=== PATIENT | male | born 1975 | race Caucasian/White ===

== ENCOUNTER 2023-08-17 07:24 | Inpatient (IN) | payer OTHER ==
[2023-08-17] MEDS ORDERED: LORazepam 2 MG/ML INJ IV PRN ×2 (07:37)
[2023-08-17] MEDS: SODIUM CHLORIDE 0.9% 1,000 ML IV STA (07:53)
[2023-08-17 07:54] VITALS: TEMP 98
--- NOTE | 2023-08-17 08:09 | ED ---
Altered Mental Status HPI - General Chief Complaint: Altered Mental Status Stated Complaint: Alcohol Withdrawls Time Seen by Provider: 08/17/23 07:25 Source: patient, EMS, RN notes reviewed Mode of arrival: EMS Limitations: altered mental status - History of Present Illness Initial Comments: 48-year-old male presents emergency department via EMS from [facility] for evaluation of altered mental status. Patient has been there for 4 days for alcohol abuse, has been receiving Ativan for his withdrawal symptoms. Patient is unable to provide any significant information he states he is very confused he does not know any answers he report reportedly has been walking into chen, has been urinating in random places, very confused. Patient has no obvious injuries. - Related Data Home Medications Medication Instructions Recorded Confirmed Calcium/Magnesium/Zinc/Vitamin D 1 tab PO TID PRN 08/17/23 08/17/23 Melatonin 5 mg PO HS 08/17/23 08/17/23 Multivitamins, Thera [Multivitamin 1 tab PO DAILY 08/17/23 08/17/23 (formulary)] Previous Rx's Medication Instructions Recorded Thiamine [Vitamin B-1] 100 mg PO DAILY #90 tab 08/17/23 Allergies Allergy/AdvReac Type Severity Reaction Status Date / Time No Known Allergies Allergy Verified 08/17/23 08:46 Review of Systems ROS Statement: Those systems with pertinent positive or pertinent negative responses have been documented in the HPI. ROS Other: All systems not noted in ROS Statement are negative. Past Medical History Past Medical History: No Reported History History of Any Multi-Drug Resistant Organisms: None Reported Past Surgical History: No Surgical Hx Reported Past Psychological History: No Psychological Hx Reported Smoking Status: Current every day smoker Past Alcohol Use History: Abuse Past Drug Use History: None Reported General Exam Limitations: altered mental status General appearance: alert, in no apparent distress Head exam: Present: atraumatic, normocephalic, normal inspection Eye exam: Present: normal appearance, PERRL, EOMI. Absent: scleral icterus, conjunctival injection, periorbital swelling Neck exam: Present: normal inspection, full ROM. Absent: tenderness, meningismus, lymphadenopathy Respiratory exam: Present: normal lung sounds bilaterally. Absent: respiratory distress, wheezes, rales, rhonchi, stridor Cardiovascular Exam: Present: regular rate, normal rhythm, normal heart sounds. Absent: systolic murmur, diastolic murmur, rubs, gallop, clicks GI/Abdominal exam: Present: soft, normal bowel sounds. Absent: distended, tenderness, guarding, rebound, rigid Neurological exam: Present: alert. Absent: oriented X3 Skin exam: Present: warm, dry, intact, normal color. Absent: rash Course Vital Signs 08/17/23 08/17/23 08/17/23 07:33 07:50 09:36 Temperature 98 F Pulse Rate 70 79 78 Respiratory 20 20 16 Rate Blood Pressure 141/92 141/92 130/68 O2 Sat by Pulse 96 96 98 Oximetry Medical Decision Making - Medical Decision Making Was pt. sent in by a medical professional or institution (, PA, CARDIAC NURSE PRACTITIONER, urgent care, hospital, or prison...) When possible be specific @ -[facility] Did you speak to anyone other than the patient for history (EMS, parent, family, police, friend...)? What history was obtained from this source @ -No Did you review nursing and triage notes (agree or disagree)? Why? @ -I reviewed and agree with nursing and triage notes Were old charts reviewed (outside hosp., previous admission, EMS record, old EKG, old radiological studies, urgent care reports/EKG's, prison records)? Report findings @ -No old charts were reviewed Differential Diagnosis (chest pain, altered mental status, abdominal pain women, abdominal pain men, vaginal bleeding, weakness, fever, dyspnea, syncope, headache, dizziness, GI bleed, back pain, seizure, CVA, palpatations, mental health, musculoskeletal)? @ -Delerium, alcohol withdrawal, hallucinations, drug abuse, alcohol abuse EKG interpreted by me (3pts min.). @ -[None X-rays interpreted by me (1pt min.). @ -Chest x-ray shows no acute process CT interpreted by me (1pt min.). @ -CT brain, showing no acute intracranial hemorrhage, mass effect or acuteabnormality U/S interpreted by me (1pt. min.). @ -None done What testing was considered but not performed or refused? (CT, X-rays, U/S, labs)? Why? @ -None What meds were considered but not given or refused? Why? @ -None Did you discuss the management of the patient with other professionals (professionals i.e. , PA, CARDIAC NURSE PRACTITIONER, lab, RT, psych nurse, social media marketing specialist, instrument assembler, teacher, fire information officer, sample case porter)? Give summary @ -[Dr. Hurtado for admission secondary to delirium, alcohol withdrawal Was smoking cessation discussed for >3mins.? @ -No Was critical care preformed (if so, how long)? @ -No Were there social determinants of health that impacted care today? How? (Homelessness, low income, unemployed, alcoholism, drug addiction, transportation, low edu. Level, literacy, decrease access to med. care, group home, rehab)? @ -No Was there de-escalation of care discussed even if they declined (Discuss DNR or withdrawal of care, Hospice)? DNR status @ -No What co-morbidities impacted this encounter? (DM, HTN, Smoking, COPD, CAD, Cancer, CVA, ARF, Chemo, Hep., AIDS, mental health diagnosis, sleep apnea, morbid obesity)? @ -alcohol abuse abuse Was patient admitted / discharged? Hospital course, mention meds given and route, prescriptions, significant lab abnormalities, going to OR and other pertinent info. @ -Admitted patient presented from [facility] for alcohol withdrawal, delirium. Patient was unable to answer questions upon arrival. Patient is having very bizarre emerald behavior. This is concerning for delirium from his alcohol withdrawal. Patient unable to provide current date and place upon arrival. Patient will be admitted for further evaluation. Undiagnosed new problem with uncertain prognosis? @ -No Drug Therapy requiring intensive monitoring for toxicity (Heparin, Nitro, Insulin, Cardizem)? @ -No Were any procedures done? @ -No Diagnosis/symptom? @ -[Delirium, alcohol withdrawal Acute, or Chronic, or Acute on Chronic? @ -Acute Uncomplicated (without systemic symptoms) or Complicated (systemic symptoms)? @ -Complicated Side effects of treatment? @ -[No Exacerbation, Progression, or Severe Exacerbation? @ -No Poses a threat to life or bodily function? How? (Chest pain, USA, ID, pneumonia, PE, COPD, DKA, ARF, appy, cholecystitis, CVA, Diverticulitis, Homicidal, Suicidal, threat to staff... and all critical care pts) @ -Yes alcohol withdrawal - Lab Data Result diagrams: 08/17/23 07:51 08/17/23 07:51 Lab Results 08/17/23 08/17/23 08/17/23 Range/Units 07:51 07:51 09:41 WBC 9.0 (3.8-10.6) k/uL RBC 4.34 (4.30-5.90) m/uL Hgb 14.0 (13.0-17.5) gm/dL Hct 41.4 (39.0-53.0) % MCV 95.3 (80.0-100.0) fL MCH 32.3 (25.0-35.0) pg MCHC 33.9 (31.0-37.0) g/dL RDW 13.4 (11.5-15.5) % Plt Count 186 (150-450) k/uL MPV 8.1 Neutrophils % 70 % Lymphocytes % 19 % Monocytes % 7 % Eosinophils % 3 % Basophils % 0 % Neutrophils # 6.3 (1.3-7.7) k/uL Lymphocytes # 1.7 (1.0-4.8) k/uL Monocytes # 0.6 (0-1.0) k/uL Eosinophils # 0.3 (0-0.7) k/uL Basophils # 0.0 (0-0.2) k/uL Sodium 138 (137-145) mmol/L Potassium 5.4 H (3.5-5.1) mmol/L Chloride 105 (98-107) mmol/L Carbon Dioxide 23 (22-30) mmol/L Anion Gap 10 mmol/L BUN 13 (9-20) mg/dL Creatinine 0.72 (0.66-1.25) mg/dL Est GFR (CKD-EPI)AfAm >90 (>60 ml/min/1.73 sqM) Est GFR (CKD-EPI)NonAf >90 (>60 ml/min/1.73 sqM) Glucose 93 (74-99) mg/dL Calcium 9.9 (8.4-10.2) mg/dL Magnesium 2.2 (1.6-2.3) mg/dL Total Bilirubin 0.9 (0.2-1.3) mg/dL AST 38 (17-59) U/L ALT 22 (4-49) U/L Alkaline Phosphatase 60 (38-126) U/L Total Protein 8.0 (6.3-8.2) g/dL Albumin 4.4 (3.5-5.0) g/dL Lipase 162 (23-300) U/L Urine Color Colorless Urine Appearance Clear (Clear) Urine pH 6.0 (5.0-8.0) Ur Specific [place] 1.006 (1.001-1.035) Urine Protein Negative (Negative) Urine Glucose (UA) Negative (Negative) Urine Ketones Negative (Negative) Urine Blood Small H (Negative) Urine Nitrite Negative (Negative) Urine Bilirubin Negative (Negative) Urine Urobilinogen <2.0 (<2.0) mg/dL Ur Leukocyte Esterase Negative (Negative) Urine RBC 5 (0-5) /hpf Urine WBC 1 (0-5) /hpf Urine Opiates Screen (NotDetected) Ur Oxycodone Screen (NotDetected) Urine Methadone Screen (NotDetected) Ur Barbiturates Screen (NotDetected) U Tricyclic Antidepress (NotDetected) Ur Phencyclidine Scrn (NotDetected) Ur Amphetamines Screen (NotDetected) U Methamphetamines Scrn (NotDetected) U Benzodiazepines Scrn (NotDetected) Urine Cocaine Screen (NotDetected) U Marijuana (THC) Screen (NotDetected) Serum Alcohol <10 mg/dL 08/17/23 Range/Units 09:41 WBC (3.8-10.6) k/uL RBC (4.30-5.90) m/uL Hgb (13.0-17.5) gm/dL Hct (39.0-53.0) % MCV (80.0-100.0) fL MCH (25.0-35.0) pg MCHC (31.0-37.0) g/dL RDW (11.5-15.5) % Plt Count (150-450) k/uL MPV Neutrophils % % Lymphocytes % % Monocytes % % Eosinophils % % Basophils % % Neutrophils # (1.3-7.7) k/uL Lymphocytes # (1.0-4.8) k/uL Monocytes # (0-1.0) k/uL Eosinophils # (0-0.7) k/uL Basophils # (0-0.2) k/uL Sodium (137-145) mmol/L Potassium (3.5-5.1) mmol/L Chloride (98-107) mmol/L Carbon Dioxide (22-30) mmol/L Anion Gap mmol/L BUN (9-20) mg/dL Creatinine (0.66-1.25) mg/dL Est GFR (CKD-EPI)AfAm (>60 ml/min/1.73 sqM) Est GFR (CKD-EPI)NonAf (>60 ml/min/1.73 sqM) Glucose (74-99) mg/dL Calcium (8.4-10.2) mg/dL Magnesium (1.6-2.3) mg/dL Total Bilirubin (0.2-1.3) mg/dL AST (17-59) U/L ALT (4-49) U/L Alkaline Phosphatase (38-126) U/L Total Protein (6.3-8.2) g/dL Albumin (3.5-5.0) g/dL Lipase (23-300) U/L Urine Color Urine Appearance (Clear) Urine pH (5.0-8.0) Ur Specific [place] (1.001-1.035) Urine Protein (Negative) Urine Glucose (UA) (Negative) Urine Ketones (Negative) Urine Blood (Negative) Urine Nitrite (Negative) Urine Bilirubin (Negative) Urine Urobilinogen (<2.0) mg/dL Ur Leukocyte Esterase (Negative) Urine RBC (0-5) /hpf Urine WBC (0-5) /hpf Urine Opiates Screen Not Detected (NotDetected) Ur Oxycodone Screen Not Detected (NotDetected) Urine Methadone Screen Not Detected (NotDetected) Ur Barbiturates Screen Not Detected (NotDetected) U Tricyclic Antidepress Not Detected (NotDetected) Ur Phencyclidine Scrn Not Detected (NotDetected) Ur Amphetamines Screen Not Detected (NotDetected) U Methamphetamines Scrn Not Detected (NotDetected) U Benzodiazepines Scrn Detected H (NotDetected) Urine Cocaine Screen Not Detected (NotDetected) U Marijuana (THC) Screen Not Detected (NotDetected) Serum Alcohol mg/dL Disposition Clinical Impression: Altered mental status, Alcohol withdrawal delirium Disposition: ADMITTED IP TO THIS [facility] Condition: Stable Time of Disposition: 10:08
--- NOTE | 2023-08-17 08:21 | XR ---
EXAMINATION TYPE: XR chest 2V DATE OF EXAM: 08/17/2023 COMPARISON: None TECHNIQUE: PA and lateral views submitted. HISTORY: Shortness of breath FINDINGS: A limited inspiration. Underlying emphysematous changes. The lungs are clear and there is no pneumot horax, pleural effusion, or focal pneumonia. Heart size normal and no overt failure. Osseous structu res demonstrate hypertrophic and degenerative changes of the spine. IMPRESSION: 1. No acute process. 2. COPD.
--- NOTE | 2023-08-17 08:24 | CT ---
EXAMINATION TYPE: CT brain wo con CT DLP: 1095.4 mGycm, Automated exposure control for dose reduction was used. DATE OF EXAM: 08/17/2023 8:12 AM COMPARISON: None. CLINICAL INDICATION:Male, 48 years old with history of AMS, Altered mental status TECHNIQUE: Brain: Axial CT images of the brain were obtained with coronal and sagittal reformats created and rev iewed. Contrast used: None. Oral contrast used: None. FINDINGS: Brain: Extra-axial spaces: No abnormal extra-axial fluid collections. Ventricular system: Within normal limits Cerebral parenchyma: No acute intraparenchymal hemorrhage or mass effect. The timmons-white junction is well differentiated. Cerebellum: Unremarkable. Mass effect: No evidence of midline shift. Intracranial vasculature: unremarkable Soft tissues: Normal. Calvarium/osseous structures: No depressed skull fracture. Paranasal sinuses and mastoid air cells: Mild scattered paranasal sinus disease. Visualized orbits: Orbital contents are intact. IMPRESSION: No acute intracranial process.
[2023-08-17 09:03] LABS: Basophils % (A) 0 %; Eosinophils # (A) 0.3 k/uL (0-0.7); Eosinophils % (A) 3 %; HCT 41.4 % (39.0-53.0); Lymphocytes # (A) 1.7 k/uL (1.0-4.8); Lymphocytes % (A) 19 %; MCH 32.3 pg (25.0-35.0); MCHC 33.9 g/dL (31.0-37.0); MCV 95.3 fL (80.0-100.0); Mean Platelet Volume 8.1; Monocytes # (A) 0.6 k/uL (0-1.0); Monocytes % (A) 7 %; Neutrophils # (A) 6.3 k/uL (1.3-7.7); Neutrophils % (A) 70 %; Platelet Count 186 k/uL (150-450); RBC 4.34 m/uL (4.30-5.90); RDW 13.4 % (11.5-15.5)
[2023-08-17 09:21] LABS: ALT 22 U/L (4-49); AST 38 U/L (17-59); African American GFR (CKD) >90 (>60 ml/min/1.73 sqM); Albumin 4.4 g/dL (3.5-5.0); Alcohol <10 mg/dL; Alkaline Phosphatase 60 U/L (38-126); Anion Gap 10 mmol/L; Blood Urea Nitrogen 13 mg/dL (9-20); Calcium 9.9 mg/dL (8.4-10.2); Carbon Dioxide 23 mmol/L (22-30); Chloride 105 mmol/L (98-107); Glucose 93 mg/dL (74-99); Lipase 162 U/L (23-300); Magnesium 2.2 mg/dL (1.6-2.3); Non-African American GFR(CKD) >90 (>60 ml/min/1.73 sqM); Potassium 5.4 mmol/L (3.5-5.1); Sodium 138 mmol/L (137-145); Total Bilirubin 0.9 mg/dL (0.2-1.3)
[2023-08-17 09:54] VITALS: BP 130/68; PULSE 78; RESP 16
[2023-08-17] MEDS: LORazepam 2 MG/ML INJ IV PRN (10:02)
[2023-08-17] MEDS ORDERED: ONDANSETRON 4 MG/2 ML VIAL IVP PRN (10:08)
[2023-08-17] MEDS ORDERED: NALOXONE 0.4 MG/ML 1 ML VIAL IV PRN (10:08)
[2023-08-17 10:20] LABS: Appearance,Urine Clear (Clear); Bilirubin,Urine Negative (Negative); Blood,Urine Small (Negative); Color,Urine Colorless; Glucose,Urine (UA) Negative (Negative); Ketones,Urine Negative (Negative); Leukocyte Esterase,Urine Negative (Negative); Nitrite,Urine Negative (Negative); Protein,Urine Negative (Negative); RBC,Urine 5 /hpf (0-5); Specific Gravity,Urine 1.006 (1.001-1.035); Urobilinogen,Urine <2.0 mg/dL (<2.0); WBC,Urine 1 /hpf (0-5)
[2023-08-17 10:27] LABS: Amphetamine Screen,Urine Not Detected (NotDetected); Barbiturate Screen,Urine Not Detected (NotDetected); Benzodiazepines Screen,Urine Detected (NotDetected); Cocaine Screen,Urine Not Detected (NotDetected); Methadone Screen, Urine Not Detected (NotDetected); Opiate Screen,Urine Not Detected (NotDetected); Oxycodone Screen, Urine Not Detected (NotDetected); Phencyclidine Screen,Urine Not Detected (NotDetected); Tricyclic Antidepressant,Urine Not Detected (NotDetected); Urn Cannabinoid Scrn Not Detected (NotDetected)
[2023-08-17] MEDS: NICOTINE 21MG/24HR PATCH TRANSDERM STA (11:01)
[2023-08-17] MEDS: SODIUM CHLORIDE 0.9% 1,000 ML IV SCH (11:04)
--- NOTE | 2023-08-17 14:18 | P.HPIM ---
History of Present Illness H&P Date: 08/17/23 Patient is a 48-year-old male with history of alcohol dependence and nicotine dependence presenting from [facility] for concerns of encephalopathy and delirium. Patient was reportedly admitted to [facility] few days ago after alcohol intoxication. He has been at the facility getting oral Ativan for alcohol withdrawal. However due to concerns of delirium as well as abnormal behavior such as urinating on the chen and bumping into chen, he was sent to ER. Currently denies any chest pain, shortness of breath, abdominal pain, nausea, vomiting, urinary or bowel complaints. In the ED, temperature was 98.0, pulse 70, respiratory rate 20, blood pressure 141/92, saturating at 96% on room air. Laboratory workup showed unremarkable CBC, BMP showed potassium of 5.4, creatinine 0.72, urinalysis negative, toxicology positive for benzodiazepines, serum alcohol level negative. CT head did not show any acute process. Chest x-ray did not show any acute process. Patient admitted for acute encephalopathy likely secondary to alcohol withdrawal. Pertinent positives and negatives as discussed in HPI, a complete review of systems was performed and all other systems are negative. Patient seen and examined at bedside. Vital signs reviewed General: nontoxic, no distress, appears at stated age Derm: warm, dry Head: atraumatic, normocephalic, symmetric Eyes: EOMI, no lid lag, anicteric sclera, pupils equal round reactive to light ENT: Nose and ears atraumatic Neck: No thyromegaly, supple Mouth: no lip lesion, mucus membranes moist Cardiovascular: S1S2 reg, no murmur, no edema Lungs: clear to auscultation bilateral, no rhonchi, no rales, no wheeze, no accessory muscle use Abdominal: soft, nontender to palpation, no guarding, no appreciable organomegaly Ext: no gross muscle atrophy, muscle strength muscle strength 5 out of 5 in all 4 extremities, no contractures Neuro: CN II-XII grossly intact Psych: Alert, oriented, appropriate affect Assessment/Plan: Acute metabolic encephalopathy, resolved Alcohol dependence Nicotine dependence -Patient was started on normal saline at 75 cc an hour -started on oral thiamine -Ativan IV as needed per CIWA score -nicotine patch 21 mg daily -Patient does not have any signs of withdrawal at the moment. May have chronic behavioral issues which he needs outpatient follow-up with. He is alert and oriented x 3. Denies any suicidal or homicidal ideations. Patient going back to [facility] The patient is admitted with an anticipated last than 2 midnight stay as observation status for evaluation of encephalopathy. Surrogate decision-maker: Significant other CODE STATUS: Full code DVT prophylaxis: Not indicated Anticipated discharge date: Today Anticipated discharge place: [facility] A total of 55 minutes was spent on the care of this complex patient more than 50% of the time was spent in counseling and care coordination. Past Medical History Past Medical History: No Reported History History of Any Multi-Drug Resistant Organisms: None Reported Past Surgical History: No Surgical Hx Reported Past Psychological History: No Psychological Hx Reported Smoking Status: Current every day smoker Past Alcohol Use History: Abuse Past Drug Use History: None Reported Medications and Allergies Home Medications Medication Instructions Recorded Confirmed Type Calcium/Magnesium/Zinc/Vitamin D 1 tab PO TID PRN 08/17/23 08/17/23 History Melatonin 5 mg PO HS 08/17/23 08/17/23 History Multivitamins, Thera [Multivitamin 1 tab PO DAILY 08/17/23 08/17/23 History (formulary)] Thiamine [Vitamin B-1] 100 mg PO DAILY #90 tab 08/17/23 Rx Allergies Allergy/AdvReac Type Severity Reaction Status Date / Time No Known Allergies Allergy Verified 08/17/23 08:46 Physical Exam Vitals: Vital Signs Temp Pulse Resp BP Pulse Ox 08/17/23 09:36 78 16 130/68 98 08/17/23 07:50 79 20 141/92 96 08/17/23 07:33 98 F 70 20 141/92 96 Intake and Output 08/16/23 08/17/23 08/17/23 22:59 06:59 14:59 Other: Weight 80.286 kg Results CBC & Chem 7: 08/17/23 07:51 08/17/23 07:51 Labs: Abnormal Lab Results - Last 24 Hours (Table) 08/17/23 08/17/23 08/17/23 Range/Units 07:51 09:41 09:41 Potassium 5.4 H (3.5-5.1) mmol/L Urine Blood Small H (Negative) U Benzodiazepines Scrn Detected H (NotDetected)
--- NOTE | 2023-08-17 14:20 | P.DS ---
Providers Date of admission: 08/17/23 10:24 Expected date of discharge: 08/17/23 Attending physician: Juan Hurtado MD Primary care physician: Rupert Woody Hospital Course: Discharge Diagnosis: Acute metabolic encephalopathy Alcohol dependence Nicotine dependence Hospital Course: Patient is a 48-year-old male with history of alcohol dependence and nicotine dependence presenting from [facility] for concerns of encephalopathy and de lirium. Patient was reportedly admitted to [facility] few days ago after alcohol intoxication. He has been at the facility getting oral Ativan for alcohol withdrawal. However due to concerns of delirium as well as abnormal behavior such as urinating on the chen and bumping into chen, he was sent to ER. Currently denies any chest pain, shortness of breath, abdominal pain, nausea, vomiting, urinary or bowel complaints. In the ED, temperature was 98.0, pulse 70, respiratory rate 20, blood pressure 141/92, saturating at 96% on room air. Laboratory workup showed unremarkable CBC, BMP showed potassium of 5.4, creatinine 0.72, urinalysis negative, toxicology positive for benzodiazepines, serum alcohol level negative. CT head did not show any acute process. Chest x-ray did not show any acute process. Patient admitted for acute encephalopathy likely secondary to alcohol withdrawal. Patient does not have any signs of withdrawal at the moment. May have chronic behavioral issues which he needs outpatient follow-up with. He is alert and oriented x 3. Denies any suicidal or homicidal ideations. Patient going back to [facility] Patient seen and examined at bedside. Vital signs reviewed and stable. General: Nontoxic, no distress, appears at stated age Derm: Warm, dry Head: Atraumatic, normocephalic, symmetric Eyes: EOMI, no lid lag, anicteric sclera Mouth: No lip lesion, mucus membranes moist Cardiovascular: S1S2 reg, no murmur Lungs: CTA bilateral, no rhonchi, no rales, no accessory muscle use Abdominal: Soft, nontender to palpation, no guarding, no appreciable organomegaly Ext: No gross muscle atrophy, no edema, no contractures Neuro: CN II-XI grossly intact, no focal neuro deficits Psych: Alert, oriented, appropriate affect A total of 33 minutes of time were spent preparing this complex discharge summary. Patient was discharged on 08/17/2023 at 1209. Patient Condition at Discharge: Stable Plan - Discharge Summary New Discharge Prescriptions: New Thiamine [Vitamin B-1] 100 mg PO DAILY #90 tab Continue Multivitamins, Thera [Multivitamin (formulary)] 1 tab PO DAILY Melatonin 5 mg PO HS Calcium/Magnesium/Zinc/Vitamin D 1 tab PO TID PRN PRN Reason: Cramping Discontinued ondansetron HCL [Zofran] 8 mg PO Q6H PRN PRN Reason: Nausea And Vomiting Thiamine [Vitamin B-1] 100 mg PO DAILY Mag Hydrox/Aluminum Hyd/Simeth [Mylanta Maximum Strength Liq] 30 ml PO Q4H PRN PRN Reason: Gi Upset Loperamide HCl [Imodium A-D] 4 mg PO BID PRN PRN Reason: Diarrhea Hyoscyamine Sulfate [Levsin] 0.125 mg PO QID PRN PRN Reason: Gi Upset cloNIDine HCL [Catapres] 0.1 - 0.3 mg PO Q4H PRN PRN Reason: BP >160/100 Acetaminophen Tab [Tylenol] 650 mg PO Q4H Ibuprofen [Motrin Ib] 600 mg PO Q6H PRN PRN Reason: Fever And/ Or Pain Chlorpheniramine Maleate [Chlor-Trimeton] 4 mg PO Q4H PRN PRN Reason: Allergy Symptoms LORazepam [Ativan] 1 - 2 mg PO Q4-6H Discharge Medication List Calcium/Magnesium/Zinc/Vitamin D 1 tab PO TID PRN 08/17/23 [History] Melatonin 5 mg PO HS 08/17/23 [History] Multivitamins, Thera [Multivitamin (formulary)] 1 tab PO DAILY 08/17/23 [History] Thiamine [Vitamin B-1] 100 mg PO DAILY #90 tab 08/17/23 [Rx] Follow up Appointment(s)/Referral(s): Rupert Woody [Primary Care Provider] - 1-2 days Patient Instructions/Handouts: Alcohol Dependence (DC) Discharge Disposition: HOME SELF-CARE
[2023-08-18] MEDS ORDERED: THIAMINE 100 MG TAB PO SCH (09:00)
== END 2023-08-17 12:57 | disposition home or self-care (01) | DRG 775 ==
LOC: EC 07:24 → 5NMEDONC 10:24
PROVIDERS: ADMIT Student in an Organized Health Care Education/Training Program; ATTEND Student in an Organized Health Care Education/Training Program
DX: F10.231 Alcohol dependence with withdrawal delirium (principal); G93.41 Metabolic encephalopathy; F17.210 Nicotine dependence, cigarettes, uncomplicated; Y90.0 Blood alcohol level of less than 20 mg/100 ml
CPT/HCPCS: 36415; 70450; 71046; 80053; 80306; 80320; 81001; 83690; 83735; 85025; 96374; 99285